=== PATIENT | male | born 1960 | race Caucasian/White ===

== ENCOUNTER 2024-02-20 11:59 | Emergency (ER) | payer OTHER ==
[2024-02-20 12:06] VITALS: RESP 18
--- NOTE | 2024-02-20 13:09 | XR ---
EXAMINATION TYPE: XR wrist complete RT DATE OF EXAM: 02/20/2024 COMPARISON: NONE HISTORY: Pain TECHNIQUE: Four views submitted. FINDINGS: The osseous structures are intact. Severe narrowing of this trapezial scaphoid joint. Benign cyst in the lunate.. IMPRESSION: 1. Severe trapezioscaphoid arthropathy. 2. No acute fracture.
--- NOTE | 2024-02-20 13:10 | XR ---
EXAMINATION TYPE: XR shoulder complete RT DATE OF EXAM: 02/20/2024 COMPARISON: NONE HISTORY: Pain TECHNIQUE: Three views are submitted. FINDINGS: The osseous structures are intact. There is no acute fracture or dislocation. Moderate to severe hyp ertrophic arthropathy AC joint. IMPRESSION: 1. No acute fracture. 2. Moderate to severe AC joint hypertrophic arthropathy correlate for impingement.
--- NOTE | 2024-02-20 13:15 | XR ---
EXAMINATION TYPE: XR ribs LT w pa chest xray DATE OF EXAM: 02/20/2024 COMPARISON: Total 1813 HISTORY: Pain TECHNIQUE: Frontal view of the chest and 4 views of the left ribs are submitted FINDINGS: Chronic deformity of the left third and fourth ribs stable from prior exam. Degenerative ch anges of the spine. Vague nodule overlying the left lower lobe likely related to nipple shadow. IMPRESSION: 1. Stable chronic rib deformities with no evidence of acute displaced fracture.
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
[2024-02-20 14:06] VITALS: BP 159/90; PULSE 88; TEMP 98.1
== END 2024-02-20 14:06 | disposition home or self-care (01) ==
LOC: EC 11:59
DX: S43.401A Unspecified sprain of right shoulder joint, initial encounter (principal); S63.501A Unspecified sprain of right wrist, initial encounter; S20.212A Contusion of left front wall of thorax, initial encounter; Y04.8XXA Assault by other bodily force, initial encounter
CPT/HCPCS: 99284